=== PATIENT | female | born 1950 | race African-American/Black ===

== ENCOUNTER 2017-09-24 08:01 | Emergency (ER) | payer BC, OTHER ==
[~2017-09-24] VITALS: Ht 167.6 cm; Wt 56.8 kg
[~2017-09-24 08:01] MED LIST: BONI150T; PREV30CA36; ZOVI400T15; [UNRECOGNIZED DRUG - OTHER]
[2017-09-24 08:05] VITALS: BP 176/95; PULSE 109; PULSE 123; RESP 20; TEMP 98; O2SAT 98
[2017-09-24 08:10] VITALS: RESP 20; O2SAT 100
[2017-09-24] MEDS ORDERED: ASPIRIN 81 MG CHEW TAB PO ONE (08:15)
[2017-09-24] MEDS ORDERED: SODIUM CHLORIDE 0.9% FLUSH 10 ML FLUSH IVF PRN (08:15)
[2017-09-24] MEDS ORDERED: MORPHINE SULFATE 2 MG/ML INJ IV PUSH ONE ×2 (08:15→08:45)
[2017-09-24] MEDS ORDERED: ONDANSETRON HCL 4 MG/2 ML VIAL IV PUSH ONE (08:15)
[2017-09-24 08:16] LABS: AUTOMATED NEUTROPHIL # 5.1 TH/MM3 (1.8-7.7); BASOPHIL # 0.1 TH/MM3 (0-0.2); BASOPHIL % 0.9 % (0.0-2.0); EOSINOPHIL % 0.5 % (0.0-4.0); HEMATOCRIT 41.9 % (35.0-46.0); HEMOGLOBIN 13.6 GM/DL (11.6-15.3); LYMPH % 35.2 % (9.0-44.0); LYMPHOCYTE # 3.2 TH/MM3 (1.0-4.8); MEAN CELL VOLUME 93.6 FL (80.0-100.0); MEAN CORPUSCULAR HEMOGLOBIN 30.4 PG (27.0-34.0); MEAN CORPUSCULAR HGB CONC 32.4 % (32.0-36.0); MEAN PLATELET VOLUME 7.8 FL (7.0-11.0); MONO % 6.5 % (0.0-8.0); MONOCYTE # 0.6 TH/MM3 (0-0.9); NEUT % 56.9 % (16.0-70.0); PLATELET COUNT 267 TH/MM3 (150-450); RED BLOOD COUNT 4.47 MIL/MM3 (4.00-5.30); RED CELL DISTRIBUTION WIDTH 13.2 % (11.6-17.2)
[2017-09-24] MEDS ORDERED: PREM0.452 PO (08:23)
[2017-09-24] MEDS ORDERED: RANI300T PO (08:23)
[2017-09-24] MEDS ORDERED: ACYC200C66 PO (08:23)
[2017-09-24] MEDS ORDERED: AZIT250T3 PO (08:23)
[2017-09-24 08:28] LABS: CHLORIDE 105 MEQ/L (98-107); SODIUM (NA) 138 MEQ/L (136-145)
[2017-09-24 08:30] LABS: CALCIUM 9.2 MG/DL (8.5-10.1)
[2017-09-24 08:31] LABS: BICARBONATE 24.5 MEQ/L (21.0-32.0); BLOOD UREA NITROGEN 6 MG/DL (7-18); GLUCOSE,RANDOM 84 MG/DL (74-106); LIPASE 178 U/L (73-393); MAGNESIUM 2.3 MG/DL (1.5-2.5)
[2017-09-24 08:34] VITALS: BP 161/94; PULSE 79; RESP 16; O2SAT 100
[2017-09-24 08:34] LABS: GLOMERULAR FILTRATION RATE 76 ML/MIN (>89)
[2017-09-24 08:39] LABS: TROPONIN I LESS THAN 0.02 NG/ML (0.02-0.05)
[2017-09-24 08:40] LABS: PROTHROMBIN TIME - PATIENT 10.2 SEC (9.8-11.6)
--- NOTE | 2017-09-24 08:44 | RADRPT ---
EXAM DATE/TIME: 09/24/2017 08:27 [facility] COMPARISON: No previous studies available for comparison. INDICATIONS : Chest pain MEDICAL HISTORY : None. SURGICAL HISTORY : None. ENCOUNTER: Initial ACUITY: 1 day PAIN SCORE: 9/10 LOCATION: Left chest FINDINGS: The lungs are clear without infiltrate, nodule, or mass. There is no appreciable pleural effusion fo r technique. Heart and mediastinum are unremarkable. Slight hypertrophic changes are seen in the AC joint indenting the subacromial fat plane to a slight degree bilaterally with subacromial sparing. Th ere are atherosclerotic calcifications of the aorta due to chronic atherosclerotic disease. CONCLUSION: No acute cardiopulmonary disease. Sanjeev Gonzalez MD on September 24, 2017 at 8:41 Board Certified Radiologist. This report was verified electronically.
--- NOTE | 2017-09-24 08:56 | PD ---
HPI . Chest pain Chief Complaint: Pain: Acute or Chronic Time Seen by Provider: 08:04 Travel History International Travel<30 days: Yes Contact w/Intl Traveler<30days: [place] Traveled to: [place] Traveled to known affect area: No History of Present Illness HPI This patient presents with a chief complaint of chest pain. Onset was about 11 PM. It is located on the left side of her chest and is described as a sharp, stabbing pain which is constant. Severity is "so bad." It is associated with mild shortness of breath. It is exacerbated by movement. She reports a history of GERD, gastroparesis and Raynaud's. She has no history of hypertension or diabetes. She is a nonsmoker. She does have a positive family history for coronary artery disease. In addition, she has been complaining with some calf cramping. PFSH Past Medical History Cardiovascular Problems: Yes (LEAKY MITRAL VALVE) Gastrointestinal Disorders: Yes (GASTROPARESIS) GERD: Yes Medical other: Yes (RAYNAUDS) Immunizations Current: Yes Influenza Vaccination: Yes ?: Not Past Surgical History Section: Yes (X2) Gynecologic Surgery: Yes (BARTHOLIN CYST) Social History Alcohol Use: Yes (OCC) Tobacco Use: No (NEVER) Substance Use: No Allergies-Medications (Allergen,Severity, Reaction): Coded Allergies: Sulfa (Sulfonamide Antibiotics) (Unverified Allergy, Severe, 09/24/17) levofloxacin (Unverified Allergy, Severe, 09/24/17) miconazole (Unverified Allergy, Severe, 09/24/17) penicillin G (Unverified Allergy, Severe, 09/24/17) vancomycin (Unverified Allergy, Severe, 09/24/17) Reported Meds & Prescriptions Reported Meds & Active Scripts Active Reported Azithromycin 250 Mg Tab 250 Mg PO DAILY Prempro Blister Pack (Estrogens Conj/Medroxyprogest Acet) 0.45-1.5 Mg Tab 1 Tab PO DAILY Ranitidine (Ranitidine HCl) 300 Mg Tab 300 Mg PO BID Acyclovir 200 Mg Cap 400 Mg PO BID Review of Systems Except as stated in HPI: all other systems reviewed are Neg General / Constitutional: No: Fever, Chills Cardiovascular: Positive: Chest Pain or Discomfort Respiratory: Positive: Shortness of Breath Gastrointestinal: No: Nausea, Vomiting, Diarrhea, Abdominal Pain Musculoskeletal: Positive: Cramping Physical Exam Narrative GENERAL: Tearful and obviously uncomfortable. SKIN: Warm and dry. Normal color. She has some bruising of the left middle finger. HEAD: Normocephalic/atraumatic. EYES: Pupils are equal. Extraocular movements are intact. NECK: Normal range of motion. CARDIOVASCULAR: Regular rate and rhythm. Heart sounds are normal. RESPIRATORY: Nonlabored respirations. Lungs sound clear with good air movement throughout. She does have diffuse left-sided chest wall tenderness. ABDOMEN: Soft and nontender. MUSCULOSKELETAL: Atraumatic. No calf tenderness. NEUROLOGICAL: Nonfocal. PSYCHIATRIC: Appropriate mood and affect. Data Data Last Documented VS Vital Signs Date Time Temp Pulse Resp B/P (MAP) Pulse Ox O2 Delivery O2 Flow Rate FiO2 09/24/17 09:20 16 09/24/17 08:34 79 161/94 (116) 100 Nasal Cannula 2.00 09/24/17 08:05 98.0 Orders Orders Electrocardiogram (09/24/17 08:04) Basic Metabolic Panel (Bmp) (09/24/17 08:04) Ckmb (Isoenzyme) Profile (09/24/17 08:04) Complete Blood Count With Diff (09/24/17 08:04) Magnesium (Mg) (09/24/17 08:04) Prothrombin Time / Inr (Pt) (09/24/17 08:04) Act Partial Throm Time (Ptt) (09/24/17 08:04) Troponin I (09/24/17 08:04) Chest, Single Ap (09/24/17 08:04) Ecg Monitoring (09/24/17 08:04) Iv Access Insert/Monitor (09/24/17 08:04) Oximetry (09/24/17 08:04) Aspirin Chew (Aspirin Chew) (09/24/17 08:15) Sodium Chloride 0.9% Flush (Ns Flush) (09/24/17 08:15) Morphine Inj (Morphine Inj) (09/24/17 08:15) Ondansetron Inj (Zofran Inj) (09/24/17 08:15) Ct Pulmonary Angiogram (09/24/17 08:13) Lipase (09/24/17 08:07) Morphine Inj (Morphine Inj) (09/24/17 08:45) CKMB (09/24/17 08:07) CKMB% (09/24/17 08:07) Iohexol 350 Inj (Omnipaque 350 Inj) (09/24/17 09:05) Labs Laboratory Tests Test 09/24/17 08:07 White Blood Count 9.0 TH/MM3 Red Blood Count 4.47 MIL/MM3 Hemoglobin 13.6 GM/DL Hematocrit 41.9 % Mean Corpuscular Volume 93.6 FL Mean Corpuscular Hemoglobin 30.4 PG Mean Corpuscular Hemoglobin Concent 32.4 % Red Cell Distribution Width 13.2 % Platelet Count 267 TH/MM3 Mean Platelet Volume 7.8 FL Neutrophils (%) (Auto) 56.9 % Lymphocytes (%) (Auto) 35.2 % Monocytes (%) (Auto) 6.5 % Eosinophils (%) (Auto) 0.5 % Basophils (%) (Auto) 0.9 % Neutrophils # (Auto) 5.1 TH/MM3 Lymphocytes # (Auto) 3.2 TH/MM3 Monocytes # (Auto) 0.6 TH/MM3 Eosinophils # (Auto) 0.0 TH/MM3 Basophils # (Auto) 0.1 TH/MM3 CBC Comment DIFF FINAL Differential Comment Prothrombin Time 10.2 SEC Prothromb Time International Ratio 1.0 RATIO Activated Partial Thromboplast Time 27.3 SEC Blood Urea Nitrogen 6 MG/DL Creatinine 0.90 MG/DL Random Glucose 84 MG/DL Calcium Level 9.2 MG/DL Magnesium Level 2.3 MG/DL Sodium Level 138 MEQ/L Potassium Level 3.6 MEQ/L Chloride Level 105 MEQ/L Carbon Dioxide Level 24.5 MEQ/L Anion Gap 9 MEQ/L Estimat Glomerular Filtration Rate 76 ML/MIN Total Creatine Kinase 140 U/L Creatine Kinase MB 1.5 NG/ML Troponin I LESS THAN 0.02 NG/ML Lipase 178 U/L [facility] Medical Decision Making Medical Screen Exam Complete: Yes Emergency Medical Condition: Yes Interpretation(s) EKG shows sinus tachycardia at 113. No skin changes are noted. Differential Diagnosis Differential diagnosis of chest pain includes but is not limited to musculoskeletal pain, pulmonary embolism, acute coronary syndrome, pneumonia, pleurisy Narrative Course Patient presents with left-sided chest pain. The pain seems to be musculoskeletal. However, she needs to be ruled out for PE. She also needs to be ruled out for ACS. She has been treated with morphine and Zofran with good relief of her pain so far. CBC & BMP Diagram 09/24/17 08:07 Calcium Level 9.2, Magnesium Level 2.3, Lipase 178 trop < 0.02 Last Impressions Chest X-Ray 09/24/17 0804 Signed Impressions: Service Date/Time: Sunday, September 24, 2017 08:27 - CONCLUSION: No acute cardiopulmonary disease. Sanjeev Gonzalez MD CT>>The lungs are clear without infiltrate, nodule, or mass except for slight scarring in both apices. There is no pleural effusion. No appreciable pathological adenopathy is seen within the mediastinum. There is no evidence for PE for technique. Tiny pericardial effusion is seen. She is feeling much better. She is stable for discharge to home. Diagnosis Primary Impression: Chest pain Qualified Codes: R07.9 - Chest pain, unspecified Patient Instructions: Chest Wall Pain (ED), General Instructions Med/Other Pt SpecificInfo: Prescription(s) given Scripts Cyclobenzaprine (Flexeril) 10 Mg Tab 10 MG PO TID for Muscle Spasm, #15 TAB 0 Refills Prov: Mary Siegel MD 09/24/17 Hydrocodone-Acetaminophen ([place]) 5 Mg-325 Mg Tab 1 TAB PO Q4H Y for PAIN, #12 TAB 0 Refills Prov: Mary Siegel MD 09/24/17 Disposition: 01 DISCHARGE HOME Condition: Stable Mary Siegel MD Sep 24, 2017 08:56
[2017-09-24] MEDS ORDERED: IOHEXOL 350 MG/ML 10 ML VIAL (for RAD DIAG) IVCONTRAST ONE (09:05)
--- NOTE | 2017-09-24 09:21 | RADRPT ---
EXAM DATE/TIME: 09/24/2017 08:57 [facility] COMPARISON: CHEST SINGLE AP, September 24, 2017, 8:27. INDICATIONS : Midsternal chest pain radiating into left shoulder blade and back. Evaluate for pulmonary embolism. IV CONTRAST: 65 cc Omnipaque 350 (iohexol) IV RADIATION DOSE: 7.36 CTDIvol (mGy) MEDICAL HISTORY : Gastroesophageal reflux disease. Gastroparesis. Raynaud's disease. SURGICAL HISTORY : section. ENCOUNTER: Initial ACUITY: 1 day PAIN SCALE: 6/10 LOCATION: Left chest TECHNIQUE: Volumetric scanning of the chest was performed using a pulmonary embolism protocol MIP images were re constructed. Using automated exposure control and adjustment of the mA and/or kV according to patien t size, radiation dose was kept as low as reasonably achievable to obtain optimal diagnostic quality images. DICOM format image data is available electronically for review and comparison. Follow-up recommendations for detected pulmonary nodules are based at a minimum on nodule size and pa tient risk factors according to Fleischner Society Guidelines. FINDINGS: The lungs are clear without infiltrate, nodule, or mass except for slight scarring in both apices. T here is no pleural effusion. No appreciable pathological adenopathy is seen within the mediastinum. There is no evidence for PE for technique. Tiny pericardial effusion is seen. CONCLUSION: Scarring in the lungs and tiny pericardial effusion. Sanjeev Gonzalez MD on September 24, 2017 at 9:15 Board Certified Radiologist. This report was verified electronically.
[2017-09-24] MEDS ORDERED: NORC5TAB PO (09:30)
[2017-09-24] MEDS ORDERED: CYCL10TA PO (09:30)
[2017-09-24 09:34] VITALS: BP 135/73; PULSE 87; RESP 16; O2SAT 99
[2017-09-24] MEDS ORDERED: ONDANSETRON ODT 4 MG TAB PO ONE (10:00)
--- NOTE | 2017-09-24 13:03 | EKG ---
Date Performed: 09/24/2017 Time Performed: 08:03:52 PTAGE: 66 years EKG: SINUS TACHYCARDIA MODERATE ST DEPRESSION ABNORMAL ECG Compared to PREVIOUS TRACING , sinus rate is higher. PREVIOUS TRACIN03/25/2002 14.29.22 DOCTOR: Devante Partida Interpretating Date/Time 09/24/2017 13:01:49
== END 2017-09-24 10:15 | disposition home or self-care (01) ==
LOC: PHED 08:01
DX: R07.9 Chest pain, unspecified (principal); R06.02 Shortness of breath; K31.84 Gastroparesis; K21.9 Gastro-esophageal reflux disease without esophagitis; I73.00 Raynaud's syndrome without gangrene; Z88.2 Allergy status to sulfonamides; Z88.0 Allergy status to penicillin; Z82.49 Family history of ischemic heart disease and other diseases of the circulatory system
CPT/HCPCS: 71045; 71275; 80048; 82550; 82552; 83690; 83735; 84484; 85025; 85610; 85730; 93005; 96374; 96375; 96376; 99285; J2270; J2405; Q9967